=== PATIENT | female | born 1935 | race Caucasian/White ===

== ENCOUNTER 2018-10-21 09:15 | Emergency (ER) | payer SELFPAY, OTHER, MEDICARE ==
[2018-10-21] MEDS: CEFTRIAXONE 1 GM INJ IM (09:44)
[2018-10-21] MEDS: LIDOCAINE 1% (MPF) 5 ML VIAL INJ (09:45)
[2018-10-21] MEDS: DIPHTH/TET/ACEL PERTUSS (ADULT) 0.5 ML VIAL IM* (09:45)
== END 2018-10-21 10:38 | disposition home or self-care (01) ==
LOC: FTE 10:38
DX: S80.812A Abrasion, left lower leg, initial encounter (principal); L03.116 Cellulitis of left lower limb; W22.8XXA Striking against or struck by other objects, initial encounter; Y92.9 Unspecified place or not applicable; Z23 Encounter for immunization
CPT/HCPCS: 73590; 90471; 90715; 96372; 99284-25